=== PATIENT | female | born 1970 | race Caucasian/White ===

== ENCOUNTER 2016-08-14 14:56 | Emergency (ER) | payer MEDICAID ==
[~2016-08-14] VITALS: Ht 175.3 cm; Wt 61.2 kg
[2016-08-14 15:00] VITALS: BP 104/74; PULSE 87; RESP 18; TEMP 98.1; O2SAT 98
--- NOTE | 2016-08-14 15:00 | NUR ---
Pt to bed 8. Report given to Alex Tony NP and RALPH Irby
--- NOTE | 2016-08-14 15:05 | NUR ---
Received reprot from RALPH Sullivan.Patient is a 46 year old female with chief complaint of shortness of breath and sore throat.Patient is awake,alert,oriented x 4, cooperative, able to make her needs known, full range of motion all extermities.Wheezing to bilateral upper lobes, labored breathing noted.Patient denies pain and nausea.No signs of distress observed.
--- NOTE | 2016-08-14 15:25 | NUR ---
Dr. Pride at bedside examining patient.New orders recieved.
[2016-08-14] MEDS ORDERED: DEXAMETHASONE SOD PHOSPHATE 10 MG/ML VIAL IM ONE (15:30)
[2016-08-14] MEDS ORDERED: IBUPROFEN 800 MG TABLET PO ONE (15:30)
[2016-08-14] MEDS ORDERED: IPRATROPIUM/ALBUTEROL SULFATE 3 ML AMPUL.NEB INH ONE (15:30)
--- NOTE | 2016-08-14 16:15 | NUR ---
Patient medicated as ordered.
[2016-08-14 16:29] VITALS: BP 110/59; PULSE 68; RESP 16; TEMP 98; O2SAT 100
--- NOTE | 2016-08-14 16:29 | NUR ---
Patient given written and verbal discharge instructions and verbalizes understanding. ER MD discussed with patient the results and treatment provided. Given copies of tests performed in ER. Patient in stable condition. ID arm band removed.Patient breathing even and unlabored, vss, no signs of distress noted. Rx of Albuterol puffer,Medrol Dosepack, Azithromycin,and Motringiven. Patient educated on pain, infection management and to follow up with PMD. Pain Scale . Opportunity for questions provided and answered.
== END 2016-08-14 16:29 | disposition home or self-care (01) ==
LOC: SED 14:56
DX: J20.9 Acute bronchitis, unspecified (principal); Z88.6 Allergy status to analgesic agent; Z88.5 Allergy status to narcotic agent
CPT/HCPCS: 81025; 96372; 99283; J1100; 94640